=== PATIENT | female | born 1980 | race Caucasian/White ===

== ENCOUNTER 2021-08-21 14:05 | Outpatient (CLI) | payer OTHER, SELFPAY ==
--- NOTE | ~2021-08-21 | MMUS_ITS ---
EXAMINATION: MM diagnostic josette BI w [place], US breast LT limited HISTORY: Palpable left breast lump TECHNIQUE: Additional 3-D tomosynthesis images of the breasts were performed and synthetic 2-D images were generated. CAD analysis was submitted and interpreted. High resolution Limited left breast ultr asound was performed. COMPARISON: None BREAST PARENCHYMAL COMPOSITION: Breast composed of scattered areas of fibroglandular density FINDINGS: MAMMOGRAPHIC FINDINGS: There are no suspicious masses, calcifications or architectural distortion in either breast to sugges t malignancy. ULTRASOUND: Limited left breast ultrasound: Normal heterogeneous echotexture without focal mass. IMPRESSION: 1. No evidence for malignancy in either breast. 2. Routine yearly screening mammogram and regular clinical breast examination are recommended. BI-RADS Category 1: Negative Reviewed, dictated and finalized at location A. IMPRESSION: 1. No evidence for malignancy in either breast. 2. Routine yearly screening mammogram and regular clinical breast examination a re recommended. BI-RADS Category 1: Negative
== END 2021-08-21 14:06 | disposition home or self-care (01) ==
LOC: ANHIMG 14:08
PROVIDERS: Visit Provider Obstetrics & Gynecology
DX: N63.20 Unspecified lump in the left breast, unspecified quadrant (principal)
CPT/HCPCS: 76642; 77062; 77066; G0279

== ENCOUNTER 2023-01-10 14:41 | Outpatient (CLI) | payer OTHER, SELFPAY ==
--- NOTE | ~2023-01-10 | MM_ITS ---
EXAMINATION: MM screening josette BI w [place] HISTORY: Screening mammogram TECHNIQUE: Craniocaudal and mediolateral oblique 3-D tomosynthesis images were obtained and synthetic 2-D images were generated. CAD analysis was submitted and interpreted. COMPARISON: August 21, 2021 diagnostic bilateral mammogram and limited left breast ultrasound BREAST PARENCHYMAL COMPOSITION: There are scattered areas of fibroglandular density. FINDINGS: There is no evidence of suspicious mass, calcification, or architectural distortion to sugg est malignancy in either breast. There has been no suspicious interval change. IMPRESSION: 1. No mammographic evidence of malignancy. 2. Recommend routine screening mammography in one year. BI-RADS Category 1: Negative Reviewed, dictated and finalized at location A.
== END 2023-01-10 14:42 | disposition home or self-care (01) ==
LOC: ANHIMG 14:48
PROVIDERS: PCP Internal Medicine; Visit Provider Obstetrics & Gynecology
DX: Z12.31 Encounter for screening mammogram for malignant neoplasm of breast (principal)
CPT/HCPCS: 77063; 77067

== ENCOUNTER 2024-07-20 14:19 | Outpatient (CLI) | payer OTHER, SELFPAY ==
--- NOTE | ~2024-07-20 | MMUS_ITS ---
EXAMINATION: MM diagnostic josette BI w [place], US breast LT limited HISTORY: 43-year-old woman with a palpable abnormality of the left breast, felt by patient's clinicia n. Evaluation request describes a palpable abnormality at the 2:00 position. Prior palpable abnormality evaluation request (08/21/2021) was at the 5:00 position of the left breast . TECHNIQUE: Craniocaudal and mediolateral oblique 3-D tomosynthesis images were obtained and synthetic 2-D images were generated. CAD analysis was submitted and interpreted. High resolution limited left breast ultrasound was performed. COMPARISON: 01/10/2023 and 08/21/2021 BREAST PARENCHYMAL COMPOSITION:Not Dense. There are scattered areas of fibroglandular density. FINDINGS: MAMMOGRAPHIC FINDINGS: Punctate calcifications are detected bilaterally, stable and benign in appearance. Stable parenchymal pattern without suspicious microcalcifications, architectural distortion, interval development of discrete masses or significant asymmetry. ULTRASOUND: At the 12:00 position, approximately 3 cm from the nipple is a well-circumscribed anechoic avascular structure with increased through transmission measuring 5.6 x 4.3 x 3.0 mm, consistent with a simple cyst for which no further follow-up is needed. Also at the 12:00 position approximately 3 cm from the nipple is a well-circumscribed anechoic avascu lar structure with increased through transmission measuring 6.1 x 8.4 x 3.8 mm, consistent with a sim ple cyst for which no further follow-up is needed. At the 2:00 position, approximately 3 cm from the nipple is a well-circumscribed anechoic avascular s tructure with increased through transmission measuring 5.9 x 5.5 x 1.9 mm, consistent with a simple c yst (unchanged from prior) for which no further follow-up is needed. At the 3:00 position of the left breast approximately 5 cm from the nipple is a well-circumscribed an echoic avascular structure measuring 11.2 x 14.6 x 3.6 mm, consistent with a simple cyst for which no further follow-up is needed. At the 4:00 position, approximately 2 cm from the nipple is a well-circumscribed anechoic avascular s tructure with increased through transmission measuring 5.7 mm in greatest dimension, consistent with a simple cyst, for which no further follow-up is needed. Sonographic evaluation of the remainder of the outer quadrant of the left breast demonstrates benign fibroglandular elements without a cystic or solid lesion of concern. IMPRESSION: No mammographic/tomographic or sonographic evidence to suggest the presence of malignancy. Resumption of yearly mammography is suggested. BI-RADS Category 2: Benign finding(s). Reviewed, dictated and finalized at location A. IMPRESSION: No mammographic/tomographic or sonographic evidence to suggest the presence of malignancy. Resumption of yearly mammography is suggested. BI-RADS Category 2: Benign finding(s).
--- OUTSIDE RECORDS SUMMARY | 2024-07-20 16:52 | XMS_ITS | Clinical Summary ---
Author Organization [facility] Address [address] [place] [id number] Care Team Providers Care Bridal Sales Consultant Name Role Phone Carlota Arellano MD Primary Care Provider [phone] Allergies Active Allergy Reactions Criticality Noted Date Comments Nitrofurantoin Rash Low 05/15/2021 Tape Rash Low 05/15/2021 Social History Tobacco Use Types Packs/Day Years Used Date Smoking Tobacco: Never Smokeless Tobacco: Never Alcohol Use Standard Drinks/Week Comments Never 0 (1 standard drink = 0.6 oz pur e alcohol) Comments No Sex and Gender Information Value Date Recorded Sex Assigned at Not on file Legal Sex Female 5:00 PM CDT Gender Identity Not on file Sexual Orientation Not on file Last Filed Vital Signs Vital Sign Reading Time Taken Comments Blood Pressure 135/93 05/16/2021 4:01 AM [employer] SALES PERSON Pulse 102 05/15/2021 7:44 PM [employer] PERSON Temperature 36.1 C (96.9 F) 05/15/2021 7:51 PM [employer] SAL[employer] PERSON Respiratory Rate 18 05/15/2021 7:44 PM [employer] SAL[employer] PERSON Oxygen Saturation 98% 05/16/2021 4:01 AM [employer] SAL[employer] PERSON Inhaled Oxygen Concentration - - Weight 113.2 kg (249 lb 9 oz) 05/15/2021 7:44 PM [employer] SAL[employer] PERSON Height 162.6 cm (5' 4 ) 05/15/2021 7:44 PM [employer] SAL[employer] PERSON Body Mass Index 42.84 05/15/2021 7:44 PM [employer] SAL[employer] PERSON Plan of Treatment Health Maintenance Due Date Last Done Comments Cervical Cancer Screening Pa p Smear (Age 30 to 64) Every 3 Years 1982 Annual Physical 1985 Hepatitis C 2000 Hepatitis B Vaccines (1 of 3 - 19+ 3-dose series) 2001 Cervical Cancer Screening Pa p with HPV Testing (Age 30 to 64) Every 5 Years 2012 Cervical Cancer Screening wi th HPV 2012 Mammogram Screening 2022 COVID-19 Vaccine (1 - 2023-2 5 season) 2023 Influenza Adult (#1) 2024 03/30/2021, 02/13/2017, 01/08/2016 DTaP, Tdap and Td Vaccines ( 2 - Td or Tdap) 06/05/2027 06/05/2017, 04/28/2015 Pneumococcal Vaccine: Pediatrics (0 to 5 Years) and At-Risk Patients (6 to 64 Years) Aged Out 05/29/2015 No longer eligible b ased on patient's age to complete this topic HPV Vaccines Aged Out No longer eligi ble based on patient's age to complete this topic Meningococcal B Vaccine Aged Out No l onger eligible based on patient's age to complete this topic Meningococcal Vaccine Aged Out No td gael eligible based on patient's age to complete this topic RSV Immunizations Under 20 Months Aged Out No longer eligible b ased on patient's age to complete this topic [place] [address] [place] [address] Care Teams Bridal Sales Consultant Relationship Specialty Start Date End Date Carlota Arellano MD [address] [place] [address] PCP - General INTERNAL MEDICINE 05/15/21
--- OUTSIDE RECORDS SUMMARY | 2024-07-20 16:52 | XMS_ITS ---
Author Organization [facility] Address [address] [place] [address] Care Team Providers Care Barrel Builder Name Role Phone Shannan Gray Primary Care Provider REASON FOR VISIT medication check/follow up Social History Sex Assigned At : Social History Observation Description Sex Assigned At Female Encounters Encounter Location Date Provider Diagnosis [address] [place] [address] 04/08/2023 Shannan Gray Plan Of Treatment No Information Progress Notes * Nasreen CASTELLANOSaDOB:[birth year] (43 yo F)Acc No.[id number]:04/08/2023 UNLOCKED PROGRESS NOTE Patient: Regina BURNS Provider: Martina Gray :1980 A ge:42 Y S ex:Female Date:04/08/2023 Address:[address] [place] [address] [id number] Subjective: * Chief Complaints: * 1 . Medication check/follow up. * Medical History: Objective: * Vitals: Assessment: Plan: * Treatment: * Recommended Wellness and Pre vention Guidelines: * S tatus A lert L ast Done N ext Due A ction Taken N ONCOMPLIANT C ervical cancer screening - 1 06/09/2022 - N ONCOMPLIANT H IV screening - 1 06/09/2022 - * * Electronic signature of Shannan Gray MD, [id number] on 07/20/2024 at 04:52 PM CDT Sign off status: Pending * Provider: Martina Gray Date: 06/09/2022 Generated for Printi ng/Bri/Maniitting on: 0 07/20/2024 04:52 PM CDT
--- OUTSIDE RECORDS SUMMARY | 2024-07-20 16:52 | XMS_ITS | Continuity of Care Document ---
Author Organization [facility] Address [address] [place] [address] Care Team Providers Care Ld Teacher Name Role Phone SABINE SOLIS Primary Care Provider Assessment No assessment recorded. Plan of Treatment Reminders Order Date Submit Date Provider Last Modified By Organization Details Last Modified Time Details Appointments NEW PATIENT 15 2024 09:45A Jaci Evans MD Not available Not available Not available ANY 30 2024 09:30A Jaci Maurer MD Not available Not available Not available Lab None recorded. Referral None recorded. Procedures None recorded. Surgeries open umbilical hernia repair w/mesh (SURG) 2024 04/28/2 025 [id number] [facility] (Surgery Sched), [address] [place], [address], 07/20/2024 11:27:45 Imaging None recorded. Medication Orders None recorded. Patient TargetsNo targets recorded. Patient InstructionsNo instructions recorded. Reason for Referral None Reported. Results Created Date Observation Date Name Description Value Unit Range Abnormal Flag Note LastModifiedBy Organization Detail LastModifiedTime 07/16/1907/15/2024 XR, lumbo sacra l spine , 2 or 3 view No observ ation record ed. [facility] Scheduling [address] [place], [address], 07/19/2024 09:06:55 07/16/19 25 07/15/2024 XR, lumbo sacra l spine , 2 or 3 view No observ ation record ed. [facility] Scheduling [address] [place], [address], 07/19/2024 09:06:56 Result Notes None recorded. Problems No Known Problems Procedures Surgical History Date Name Laterality Status Provider Name and Address Organization Details Recorded Time 02/13/20 23 Cholecystectomy completed Marlys Huang [place] [facility] 04/29/2024 10:00:05 07/17/19 23 Cerumen removal without microscope completed Elizabeth Pacheco [place] [facility] 07/16/2022 10:03:21 Imaging Results None recorded. Procedure Notes None recorded. Medical Equipment None Reported. Allergies Allergen ID Allergen Name Allergen Category Reaction Reaction Severity Criticality Documentation Date Start Date Code Code System Note Provider Name and Address Organization Details Recorded Time 077340 adhesive tape environme nt,medica tion Not available Not available Not available 06/12/2021 19721 UNK Not Available Not Available Not Available 914458 morphine medicatio n anaphylax is severe high 04/29/2024 7052 RxNorm Not Available Not Available Not Available 45854 grass pollen environme nt,medica tion hives severe Not available 01/08/2016 95771 UNK Not Available Not Available Not Available 22943 Macrobid medicatio n rash Not available Not available 10/10/2016 63860 1 RxNorm Not Available Not Available Not Available 00231 raspberry extract food,medi cation respirato ry distress Not available Not available 10/10/2016 14436 69 RxNorm Not Available Not Available Not Available 55142 dandelion extract food respirato ry distress Not available Not available 10/10/2016 21096 0 RxNorm Not Available Not Available Not Available Medications Name Sig Start Date Stop Date Status Note LastModified by Organization Details LastModified Time Prescript ion - Prior Authoriza tion Request active Not Available Not Available Not Available cyclobenz aprine 10 mg tablet TAKE 1 TABLET BY MOUTH EVERY 8 HOURS NEEDED (CUT IN HALF IF TOO SEDATING ) 10/09 completed Not Available Not Available Not Available amoxicill in 500 mg capsule 07/09 completed Not Available Not Available Not Available fluconazo le 100 mg tablet TAKE 1 & 1/2 (ONE & ONE-HALF ) TABLETS BY MOUTH ONCE DAILY FOR 1 DAY 06/12 completed Not Available Not Available Not Available clotrimaz ole 10 mg easton 04/29 completed Not Available Not Available Not Available bupropion HCl SR 150 mg tablet,12 hr sustained -release Take 1 tablet twice a day by oral route as directed for 30 days. 01/29 completed Not Available Not Available Not Available nystatin 100,000 unit/mL oral suspensio n SWISH AND SWALLOW 5 ML FOUR TIMES DAILY FOR UP TO TWO WEEKS. USE FOR TWO DAYS AFTER SYMPTOMS RESOLVE. IF NOT RESOLVED AFTER TWO WEEKS, LET YOUR PROVIDER KNOW. active Not Available Not Available No t Available trazodone 50 mg tablet 07/09 completed Not Available Not Available Not Available polyethyl amelia glycol 3350 17 gram oral powder packet TAKE 1 BY MOUTH ONCE DAILY NEEDED FOR CONSTIPA TION 04/29 completed Not Available Not Available Not Available azithromy gibran 250 mg tablet 04/29 completed Not Available Not Available Not Available ibuprofen 800 mg tablet 07/09 completed Not Available Not Available Not Available fluconazo le 150 mg tablet TAKE 1 TAB BY MOUTH TODAY AND THEN 1 TAB IN 72 HOURS active Not Available Not Available No t Available hydrocodo ne 5 mg-acetam inophen 325 mg tablet 07/09 completed Not Available Not Available Not Available naltrexon e 50 mg tablet Take 1 tablet every day by oral route around the clock for 30 days. 01/29 completed Not Available Not Available Not Available famotidin e 40 mg tablet TAKE 1 TABLET BY MOUTH TWICE DAILY 04/29 completed Not Available Not Available Not Available prednison e 20 mg tablet 11/22 completed Not Available Not Available Not Available Tubersol 5 tub. unit/0.1 mL intraderm al injection solution 10/10 completed TB test results were negative with 0mm. Read on 01/25/16 by LINH Amezcua Not Available Not Available Not Available lidocaine 4 % topical cream Apply 1 applicat ion 4 times a day by topical route as needed for 30 days. 09/20 completed Not Available Not Available Not Available cyanocoba ember (vit B-12) 1,000 mcg tablet one tab po q d 2024 active Not Available Not Available Not Avai lable metronida zole 500 mg tablet TAKE 1 TABLET BY MOUTH TWICE DAILY FOR 7 DAYS 06/12 completed Not Available Not Available Not Available acetamino phen 300 mg-codein e 30 mg tablet TAKE 1 TABLET BY MOUTH EVERY 4 TO 6 HOURS NEEDED FOR PAIN active Not Available Not Available No t Available ciproflox acin 250 mg tablet TAKE 1 TABLET BY MOUTH TWICE DAILY FOR 5 DAYS 06/12 completed Not Available Not Available Not Available ciproflox acin 500 mg tablet TAKE 1 TABLET BY MOUTH TWICE DAILY active Not Available Not Available No t Available tramadol 50 mg tablet TAKE 1 TO 2 TABLETS BY MOUTH THREE TIMES DAILY NEEDED PAIN CONTROL WITH OTC TYLENOL 04/29 completed Not Available Not Available Not Available Kenalog 40 mg/mL suspensio n for injection Take 40 mg as needed by injectio n route as directed for 1 day. 03/30 completed Not Available Not Available Not Available amoxicill in 875 mg tablet TAKE 1 TABLET BY MOUTH EVERY 12 HOURS FOR 10 DAYS 04/29 completed Not Available Not Available Not Available alprazola m 0.25 mg tablet TAKE 1 TABLET BY MOUTH 1 HOUR PRIOR TO MRI,MAY REPEAT ONCE IF NEEDED. (DO NOT DRIVE YOURSELF TO OR FROM THE [facility] ENT) 09/20 completed Not Available Not Available Not Available amitripty line 25 mg tablet 01/22 completed Not Available Not Available Not Available amitripty line 10 mg tablet TAKE 1 TABLET BY MOUTH ONCE DAILY AT BEDTIME 09/20 completed Not Available Not Available Not Available benzonata te 100 mg capsule TAKE 1 CAPSULE BY MOUTH EVERY 8 HOURS NEEDED 04/29 completed Not Available Not Available Not Available rizatript an 10 mg disintegr ating tablet TAKE ONE TABLET BY MOUTH AT ONSET OF MIGRAINE . IF SYMPTOMS PERSIST, A SECOND DOSE MAY BE TAKEN IN 2 HOURS. DO NOT EXCEED 2 DOSES IN A 24 HOUR PERIOD, UNLESS OTHERWIS E INSTRUCT ED BY YOUR PHYSICIA N 04/29 completed Not Available Not Available Not Available cephalexi n 500 mg capsule TAKE 1 CAPSULE BY MOUTH TWICE DAILY FOR 7 DAYS 06/12 completed Not Available Not Available Not Available pantopraz ole 40 mg tablet,de layed release TAKE 1 TABLET BY MOUTH TWICE DAILY 04/29 completed Not Available Not Available Not Available oseltamiv ir 75 mg capsule 07/09 completed Not Available Not Available Not Available nystatin 100,000 unit/gram topical cream APPLY TO THE AFFECTED AREA(S) BY TOPICAL ROUTE 2 TIMES PER DAY 09/29 completed Not Available Not Available Not Available polymyxin B sulfate 10,000 unit-trim ethoprim 1 mg/mL eye drops INSTILL 1 DROP INTO LEFT EYE EVERY 3 HOURS DIRECTED WHILE AWAKE FOR 7 DAYS 04/29 completed Not Available Not Available Not Available Xenical 120 mg capsule Take 1 capsule 3 times a day by oral route after meals for 30 days. 05/08 completed needs a pa Not Available Not Available Not Available iron 325 mg tablet Take 1 tablet every day by oral route. 06/09 completed Not Available Not Available Not Available diclofena c sodium 75 mg tablet,de layed release TAKE 1 TABLET BY MOUTH TWICE DAILY 04/29 completed Not Available Not Available Not Available monteluka st 10 mg tablet Take 1 tablet every day by oral route as directed for 30 days. 04/29 completed Not Available Not Available Not Available lorazepam 1 mg tablet Take 1 tablet as needed by oral route as directed for 1 day. 09/20 completed Not Available Not Available Not Available epinephri ne 0.3 mg/0.3 mL injection , auto-inje ctor Take 1 auto as needed by injectio n route as needed for 1 day. 04/29 completed Not Available Not Available Not Available ibuprofen 600 mg tablet 09/20 completed Not Available Not Available Not Available oxycodone -acetamin ophen 7.5 mg-325 mg tablet TAKE 1 TABLET BY MOUTH EVERY 6 HOURS NEEDED FOR PAIN MODERATE (4-6 ON SCALE), SEVERE (7-10 ON SCALE) 04/29 completed Not Available Not Available Not Available methylpre dnisolone 4 mg tablets in a dose pack TAKE BY MOUTH DIRECTED ON INSIDE OF PACKAGE 10/09 completed Not Available Not Available Not Available albuterol sulfate HFA 90 mcg/actua tion aerosol inhaler INHALE 2 PUFFS BY MOUTH EVERY 4 HOURS NEEDED active Not Available Not Available No t Available cefdinir 300 mg capsule Take 1 capsule every 12 hours by oral route. 01/04 completed Not Available Not Available Not Available fluticaso ne propionat e 50 mcg/actua tion nasal spray,[employer] [place] 2 sprays every day by intranas al route. 2024 active Not Available Not Available Not Avai lable sertralin e 50 mg tablet TAKE 1 TABLET BY MOUTH ONCE DAILY 04/29 completed Not Available Not Available Not Available naproxen 500 mg tablet 04/30 completed Not Available Not Available Not Available metoclopr amide 10 mg tablet TAKE 1 TABLET BY MOUTH TWICE DAILY DIRECTED 09/20 completed Not Available Not Available Not Available amoxicill in 875 mg-potass ium clavulana te 125 mg tablet 12/20 completed Not Available Not Available Not Available amoxicill in 500 mg-potass ium clavulana te 125 mg tablet Take 1 tablet every 12 hours by oral route after meals for 7 days. 06/09 completed Not Available Not Available Not Available Fish Oil Concentra te 1,000 mg capsule Take 1 capsule 3 times a day by oral route with meals. 09/29 completed Not Available Not Available Not Available 01/22 completed Not Available Not Available Not Available Symbicort 160 mcg-4.5 mcg/actua tion HFA aerosol inhaler INHALE 2 PUFFS BY MOUTH TWICE DAILY DIRECTED FOR 30 DAYS 06/27 completed Not Available Not Available Not Available Ashish 60 mg capsule TAKE 2 CAPSULES BY MOUTH THREE TIMES DAILY WITH MEALS 05/08 completed needs a pa Not Available Not Available Not Available diclofena c 1 % topical gel 09/20 completed Not Available Not Available Not Available Nusrat Allergy 180 mg tablet Take 1 tablet every day by oral route as directed for 30 days. 04/30 completed Not Available Not Available Not Available Jencycla 0.35 mg tablet 10/10 completed Not Available Not Available Not Available Contrave 8 mg-90 mg tablet,ex tended release Take 2 tablets twice a day by oral route as directed for 30 days. 07/09 completed Not Available Not Available Not Available Fluzone Quad (P F) 60 mcg(15 mcgx4)/0. 5 mL intramusc ular syringe 07/09 completed Not Available Not Available Not Available Humira(CF ) Pen 40 mg/0.4 mL subcutane ous kit INJECT 1 PEN UNDER THE SKIN EVERY 14 DAYS. 04/29 completed Not Available Not Available Not Available Ensure MAX Protein oral liquid Take 230 mL 3 times a day by oral route as directed for 30 days. 09/20 completed Not Available Not Available Not Available COVID-19 test specimen collectio n TEST DIRECTED 10/09 completed Not Available Not Available Not Available Vitals Date Recorded Body height Body mass index (BMI) Body weight Heart rate Body temperature Oxygen saturation Oxygen saturation in Arterial blood by Pulse oximetry Systolic blood pressure Diastolic blood pressure Provider Name and Address Organization Details Last Updated DateTime 5 162.56 cm 40.2 kg/m2 348653. 33 g 85 /min 97.6 [degF] 98 % 98 % 135 mm[Hg] 77 mm[Hg] Danielle Gill MA [place] [facility] 5 10:57:18 Social History Question Answer Notes LastModified by Organizat ion Details LastModified Time Tobacco Smoking Status Never Smoker Ernie Mohan MA [facility], [place] - [place] 01/08/2016 14:37:58 Do You Have An Advance Directive? No [email or web address] Information n ot available 11/22/2021 What Is Your Level Of Alcohol Consumption? Occasional Information not available 10/10/2016 What Is Your Level Of Caffeine Consumption? Occasional Information not available 07/14/2017 In The 14 Days Before Symptom Onset, Have You Had Close Contact With A Laboratory-confirm ed COVID-19 While That Case Was Ill? No Information n ot available 12/20/2021 In The 14 Days Before Symptom Onset, Have You Had Close Contact With A Person Who Is Under Investigation For COVID-19 While That Person Was Ill? No Information not available 12/20/2021 Have You Been To An Area Known To Be High Risk For COVID-19? No Information not available 12/20/2021 Are You Currently Employed? No Information not available 02/05/2022 What Type Of Diet Are You Following? REGULAR Information n ot available 07/14/2017 Which Illicit Or Recreational Drugs Have You Used? NONE Information not available 07/14/2017 What Is The Highest Grade Or Level Of School You Have Completed Or The Highest Degree You Have Received? [id number] Information not available 02/05/2022 Do You Have A Medical Power Of Machine Straw Hat Presser? No Information not available 07/20/2024 What Was The Date Of Your Most Recent Tobacco Screening? 07/20/2024 Information not available 07/20/2024 Seat Belts Used Routinely Yes Information not available 07/14/2017 General Stress Level Medium Information not available 07/14/2017 Do You Use Sunscreen Routinely? Yes Information not available 07/14/2017 Sex: Female Functional Status Question Answer Note LastModified by Organization D etails LastModified Time What is your exercise level? None Information not available 07/14/2017 Mental Status None recorded. Family History Relationship Description Onset Age of this Age Resolved Age Notes LastModified by Organization Details LastModified Time Father Asthma Not available 10/10/2016 14:12:05 Father Cerebrovascu lar accident Not available 14:12:33 Father Dementia Not availab le 10/10/2016 14:12:50 Father Depressive disorder Not available 10/10 14:13:12 Father Disorder of thyroid gland Not available 10/10 14:13:20 Father Hypertensive disorder Not available 10/10 14:14:14 Father Hypercholest erolemia Not available 10/10 14:14:26 Mother Suspected breast cancer Not available 10/10 14:12:22 Mother Coronary arterioscler osis Not available 10/10 14:12:42 Mother Depressive disorder Not available 10/10 14:13:12 Mother Heart disease Not available 10/10 14:13:28 Mother Hypertensive disorder Not available 10/10 14:14:14 Mother Hypercholest erolemia Not available 10/10 14:14:26 Mother Myocardial infarction Not available 09/26 14:14:39 Mother Osteoporosis Not glenny ilable 10/10/2016 14:14:47 Mother Ankylosing spondylitis Not available 14:16:58 Brother Depressive disorder Not available 10/10 14:13:12 Brother Hypertensive disorder Not available 10/10 14:14:14 Brother Posttraumati c stress disorder Not available 10/10 14:15:15 Medical History Condition Response Anxiety Disorder Y Muscle, Joint, or Bone Problems Y Migraines Y Gynecological History Statement/Question Response Date of LMP 08/31/2021 Obstetrics History GPAL:G 0 P 0 0 0 0 Immunizations Vaccine Type Date Status Note Provider Nam e and Address Organization Details Recorded Time Influenza, split virus, quadrivalent, preservative 6 completed Not Available [facility] 05/15/2019 02:51:04 Hep B, adult 6 completed Not Available [facility] 05/15/2019 02:30:47 Tdap 8 completed Not Available [facility] 05/15/2019 02:35:17 Influenza, split virus, quadrivalent, preservative 1 completed Pranav Haley MA [facility], [place] 03/30/2021 13:43:00 pneumococcal, unspecified formulation 6 completed Not Available [facility] 02/10/2023 08:16:28 tetanus toxoid, unspecified formulation 6 completed Not Available [facility] 02/10/2023 08:16:28 Influenza, split virus, quadrivalent, preservative 7 completed Not Available [facility] 02/10/2023 08:16:27 Past Encounters Encounter ID Performer Location Encounter Start Date Encounter Closed Date Diagnosis/Indication Diagnosis SNOMED-CT Code Diagnosis ICD10 Code Diagnosis Note [id number] Michael Diallo MD [facility] [address] [place] [address] 07/13/2024 14:48:31 07/13/2024 15:18:50 Candidiasis of mouth 09708135 B37.0 infection resolving Chronic rhinitis 3144343 6 J31.0 add over-the-c ounter antihistam mamadou follow back as needed [id number] Marquis Evans MD [facility] [address] [place] [address] 07/20/2024 10:46:50 07/20/2024 14:39:07 Reducible umbilical hernia 533103152 K42.9 patient with symptomati c umbilical hernia, amenable to open repair. Risks include bleeding, recurrence , pain, and mesh infection. Patient is in agreement with the plan of care. Will proceed to the OR as soon as is convenient . Health Concerns Section Related Observation LastModified by Organization Detai ls LastModified Time None Recorded Concern Status LastModified by Organization Details LastModified Time None Recorded Payers Encounter Date Sequence Insurance Name Policy Number Policy Dent Covered Member ID Dent Member ID Guarantor Name 07/20/2024 1 *SELF PAY* Jose Ramon skye Tray Notes Date Note Type Note Provider Name and Address Organization Details Recorded Time 07/20/2024 text/html HerniaReported bypatient.Location:u mbilical port site Quality:tender;bulgi ng Severity:mild; worse during the day; pressure Duration:4 months Onset/Timing:intermi ttent Context:no history of chronic liver disease; no family history of substance abuse Alleviating factors:rest Aggravating factors:bending over Associated Symptoms:no nausea; no vomiting Marquis Evans MD [address], [place], [address], [facility] - [place] 07/20/2024 11:17:15 OBGyn Episode No OBEpisode recorded.
--- OUTSIDE RECORDS SUMMARY | 2024-07-20 16:52 | XMS_ITS | Referral Summary ---
Author Organization [facility] [address] [place] [address] Care Team Providers Care Patient Services Coordinator Name Role Phone Carlota Arellano MD Primary Care Provider Carlota Arellano MD Unavailable [phone] Juwan Alanis MD Unavailable [phone] Deb Ji NP Unavailable [phone] Allergies Active Allergy Reactions Criticality Noted Date Comments Adhesive Rash Medium 05/15/2021 Dandelion [place] Shortness of breath,Rash High 022 And dogwood Grass Pollen Shortness of breath,Rash High 2 Nitrofurantoin Hives Medium 11/11/2019 Raspberry Anaphylaxis,Swelling High 09/03/2021 Epi pen Medications famotidine (PEPCID) 40 mg tablet Take 0.5 tablets (20 mg total) by mouth 2 (two) times a day 08/01/[address] (PROTONIX) 40 mg EC tablet Take 1 tablet (40 mg total) by mouth 2 (two) times a day 08/01/19 22 Active cetirizine (ZyrTEC) 10 mg tablet Take 1 tablet (10 mg total) by mouth nightly Active albuterol HFA (PROVENTIL HFA,VENTOLIN HFA,PROAIR HFA) 90 mcg/actuation inhaler Inhale 2 puffs every 6 (six) hours as needed for wheezing Active montelukast (SINGULAIR) 10 mg tablet Take 1 tablet (10 mg total) by mouth daily 01/05/20 22 Active EPINEPHrine (EPIPEN) 0.15 mg/0.3 mL injection syringeIndications :Anaphylaxis Inject 0.3 mL (0.15 mg total) into the muscle as instructed as needed for anaphylaxis Active rizatriptan DIECAST MACHINE OPERATOR (MAXALT-DIECAST MACHINE OPERATOR) 10 mg disintegrating tabletIndications: Migraine Take 1 tablet (10 mg total) by mouth once as needed for migraine May repeat in 2 hours if unresolved. Do not exceed 30 mg in 24 hours. 9 tablet 5 03/14/20 22 Active Active Problems Problem Noted Date Diagnosed Date Paresthesias 03/15/2022 Migraine without aura and wi thout status migrainosus, not intractable 03/15/2022 Gallbladder disease 09/05/2021 Cubital tunnel syndrome on right 11/11/2019 Assessment & Plan (11/11/2019 2:39 PM CDT): Patient likely sustained a contusion to her ulnar nerve at the cubital tunnel. The can be some secondary scarring in her elbow is restricted in his motion. Would encourage her to work in therapy on regaining range of motion strength and comfort with the arm. She should avoiding direct pressure on the point of the elbow. She may find topical rubs such as Voltaren helpful to diminished inflammation in the nerve tissue. Immunizations Immunization Administration Dates Next Due Hep B Vaccine 01/22/2016 Influenza, Quadrivalent, Split, Intramuscular Influenza, Quadrivalent, Spl it, Preservative Free, Intramuscular 02/13/2017 Pneumococcal, Unspecified 05/29/2015 Tdap 06/05/2017 Tetanus Toxoid, Unspecified 04/28/2015 Social History Tobacco Use Types Packs/Day Years Used Date Smoking Tobacco: Never Smokeless Tobacco: Never Tobacco Cessation:Counseling Given: Not Answered AUDIT-C Answer Date Recorded Q1: How often do you have a drink containing alcohol? Never 03/14/2022 Q2: How many drinks containi ng alcohol do you have on a typical day when you are drinking? Patient does not drink Q3: How often do you have si x or more drinks on one occasion? Never 03/14/2022 Personal Safety Answer Date Recorded Getting School Help Needed Not on file 06/28 Comments No Sex and Gender Information Value Date Recorded Sex Assigned at Not on file Legal Sex Female 7:[address] Gender Identity Female 07/25/2021 9:20 PM CDT Sexual Orientation Not on file Last Filed Vital Signs Vital Sign Reading Time Taken Comments Blood Pressure 121/84 05/17/2022 6:[address] Pulse 77 05/17/2022 6:[address] Temperature 36.7 C (98.1 F) 05/17/2022 2:[address] Respiratory Rate 17 05/17/2022 6:[address] Oxygen Saturation 99% 05/17/2022 6:[address] Inhaled Oxygen Concentration - - Weight 110.7 kg (244 lb) 05/17/2022 2:[address] Height 162.6 cm (5' 4 ) 05/17/2022 2:[address] Body Mass Index 41.88 05/17/2022 2:[address] Plan of Treatment Not on file Insurance [facility] Care Teams Patient Services Coordinator Relationship Specialty Start Date End Date Carlota Arellano MD [address] [place] [address] PCP - General 11/15/19 Carlota Arellano MD [address] [place] [address] Internal Medicine 11/15/19 Juwan Alanis MD [address] [place] [address] Consulting Physician General Surgery 08/24/21 Deb Ji NP [address] [place] [address] Nurse Practitioner Neurology 01/16/22
--- OUTSIDE RECORDS SUMMARY | 2024-07-20 16:53 | XMS_ITS | Clinical Summary ---
Author Organization [facility] Physician Office Building [address] [place] [id number] Care Team Providers Care Furniture Assembler And Installer Name Role Phone Carlota Arellano MD Primary Care Provider [phone] Carlota Arellano MD Unavailable [phone] Juwan Alanis MD Unavailable [phone] Deb Ji NP Unavailable [phone] Allergies Active Allergy Reactions Criticality Noted Date Comments Adhesive Rash Medium 05/15/2021 Dandelion Dellroy Shortness of breath,Rash High 022 And dogwood [...] instructed as needed for anaphylaxis Active rizatriptan MEDICAID BUSINESS ANALYST (MAXALT-MEDICAID BUSINESS ANALYST) 10 mg disintegrating tabletIndications: Migraine Take 1 [...] 05/29/2015 Tdap 06/05/2017 Tetanus Toxoid, Unspecified 04/28/2015 Surgical History Surgery Date Site/Laterality Comments TUBAL LIGATION SECTION SMALL INTESTINE SURGERY as infant Medical History Medical History Date Comments Anxiety Depression GERD (gastroesophageal reflux disease) controlled with meds. Migraines Paresthesia Face and upper e xtremities; Has been happening since age 21. Now more symptoms and having migraines Gallbladder disorder Pain to RUQ , GERD, Low EF. Seeing surgeon in [place] Allergic rhinitis Food intolerance see allergies Claustrophobia Has to have MRI' s with Anesthesia Family History Medical History Relation Name Comments Dementia Father Diabetes Father Heart disease Father Parkinsonism Father Fibromyalgia Mother Relation Name Status Comments Father Alive Mother Alive Social History Tobacco Use Types Packs/Day Years [...] on file Legal Sex Female 7:45 PM VISUAL BASIC .NET DEVELOPER Gender Identity Female 07/25/2021 9:20 PM CDT Sexual Orientation Not on file Obstetrics History Last Filed Vital Signs Vital Sign Reading Time Taken Comments Blood Pressure 121/84 05/17/2022 6:25 PM VISUAL BASIC .NET DEVELOPER Pulse 77 05/17/2022 6:30 PM VISUAL BASIC .NET DEVELOPER Temperature 36.7 C (98.1 F) 05/17/2022 2:02 PM VISUAL BASIC .NET DEVELOPER Respiratory Rate 17 05/17/2022 6:30 PM VISUAL BASIC .NET DEVELOPER Oxygen Saturation 99% 05/17/2022 6:30 PM VISUAL BASIC .NET DEVELOPER Inhaled Oxygen Concentration - - Weight 110.7 kg (244 lb) 05/17/2022 2:02 PM VISUAL BASIC .NET DEVELOPER Height 162.6 cm (5' 4 ) 05/17/2022 2:02 PM VISUAL BASIC .NET DEVELOPER Body Mass Index 41.88 05/17/2022 2:02 PM VISUAL BASIC .NET DEVELOPER Plan of Treatment Health Maintenance Due Date Last Done Comments Breast Cancer Screening-Mammogram 1982 Cervical Cancer Screening 1982 Depression Screening 1982 Hepatitis C Screening 1982 Varicella Vaccines (1 of 2 - 13+ 2-dose series) 10/09/1995 Regular Well Visit/Exam 18-64 2000 Influenza Vaccine (#1) 2023 1, 02/13/2017, 01/08/2016 DTaP/Tdap/Td Vaccine (2 - Td or Tdap) 06/05/2027 06/05/2017 Pneumococcal vaccine <65 Aged Out 05/29/2015 No longer eligible based on patient's age to complete this topic Hepatitis B Screening Completed 01/22/2016 HPV Vaccines Aged Out No longer eligi ble based on patient's age to complete this topic Insurance Care Teams Furniture Assembler And Installer Relationship Specialty Start Date End Date Carlota Arellano MD [address] [place] [id number] PCP - General 11/15/19 Carlota Arellano MD [address] [place] [id number] Internal Medicine 11/15/19 Juwan Alanis MD [address] [place] [address] [phone] Consulting Physician General Surgery 08/24/21 Deb Ji NP [address] [place] [phone] Nurse Practitioner Neurology 01/16/22
--- OUTSIDE RECORDS SUMMARY | 2024-07-20 16:53 | XMS_ITS | Data Portability ---
Author Organization [facility] DENIJen Jose Alberto Lugo Address [address] [place] [address] Care Team Providers Care Account Resolution Analyst Name Role Phone SABINE SOLIS Primary Care Provider [phone] Assessment Encounter Date Assessment Date Assessment LastModified by Organization Details LastModified Time 04/29/2024 04/29/2024 Patient concerned about the possibility of a hernia. There was no obvious hernia on exam. I cannot rule out a small reducible hernia. Will continue to observe. Advised patient to seek immediate medical attention if she develops a hard mass. [email or web address] Not available 04/29/2024 11:16:39 Plan of Treatment Reminders Order Date Submit Date Provider Last Modified By Organization Details Last Modified Time Details Appointments NEW PATIENT 15 2024 09:45A M Marquis Evans MD Not available Not available Not available ANY 30 2024 09:30A M Olga Maurer MD Not available Not available Not available Lab bacterial vaginosis + vaginitis panel, vaginal 2024 025 [facility], [address] [place] [address], [address], [place], [address], 06/30/2024 11:14:34 fungus, culture, unspecifi ed specimen 2024 025 [facility], [address] [place] [address], [address], [place], [address], 06/30/2024 11:14:35 TSH + free T4, serum 2024 025 [facility], [address] [place] [address], [address], [place], [address], 04/30/2024 13:09:00 CMP, serum or plasma 2024 025 [facility], [address], [address], [place], [address], 04/30/2024 13:09:03 HbA1c (hemoglob in A1c), blood 2024 025 [facility], [address], [address], [place], [address], 04/30/2024 13:09:04 lipid panel, serum 2024 025 [facility], [address], [address], [place], [place], [address], 04/30/2024 13:09:01 ESR (erythroc yte sedimenta tion rate), blood 2024 025 [facility], [address], [address], [place], [address], 04/30/2024 13:09:05 HARISH (antinucl ear antibodie s) screen, serum 2024 025 [facility], [address] [facility], [address], [place], [address], 04/30/2024 13:08:58 Referral None recorded. Procedures None recorded. Surgeries open umbilical hernia repair w/mesh (SURG) 2024 025 [id number] (Surgery Sched), [address] [place], [address], 07/20/2024 11:27:45 Imaging XR, sacroilia c joint(s) 2024 025 [facility] (One Call Scheduling), [address] [place], [address], 06/24/2024 14:17:50 XR, lumbosacr al spine, 2 or 3 view 2024 025 [facility] (One Call Scheduling), [address] [place], [address], 07/15/2024 15:06:19 Medication Orders fluticaso ne propionat e 50 mcg/actua tion nasal spray,britni pension 2024 025 [facility], [address] [facility], [place], [address], 07/13/2024 15:17:14 Patient TargetsNo targets recorded. Patient InstructionsNo instructions recorded. Reason for Referral None Reported. Results Created Date Observation Date Name Description Value Unit Range Abnormal Flag Note LastModifiedBy Organization Detail LastModifiedTime 04/29/1904/30/2024 HARISH W/REF MANNY HARISH direct NEGATI VE negati ve Not Available [facility] ([facility]) [address] [place], [address], 04/30/2024 13:08:58 04/29/1904/30/2024 TSH+F REE T4 TSH 2.410 uIU/m L 0.450- 4.500 Not Available [facility] ([facility]) [address] [place], [address], 04/30/2024 13:09:00 04/29/1904/30/2024 TSH+F REE T4 T4,free(dire ct) 1.27 NG/dL 0.82-1 .77 Not Available [facility] ([facility]) [address] [place], [address], 04/30/2024 13:09:00 04/29/19 25 04/30/2024 LIPID PANEL cholesterol, total 235 mg/dL 100-19 9 above high normal Not Available [facility] ([facility]) [address] [place], [address], 04/30/2024 13:09:01 04/29/19 25 04/30/2024 LIPID PANEL triglyceride s 363 mg/dL 0-149 above high normal Not Available [facility] ([facility]) [address] [place], [address], 04/30/2024 13:09:01 04/29/19 25 04/30/2024 LIPID PANEL HDL cholesterol 39 mg/dL >39 below low normal Not Available [facility] ([facility]) [address] [place], [address], 04/30/2024 13:09:01 04/29/19 25 04/30/2024 LIPID PANEL VLDL cholesterol jorge l 65 mg/dL 5-40 above high normal Not Available [facility] ([facility]) [address] [place], [address], 04/30/2024 13:09:01 04/29/19 25 04/30/2024 LIPID PANEL LDL chol calc ([facility]) 131 mg/dL 0-99 above high normal Not Available [facility] ([facility]) [address] [place], [address], 04/30/2024 13:09:01 04/29/19 25 04/30/2024 COMP. METAB OLIC PANEL (14) glucose 115 mg/dL 70-99 above high normal Not Available [facility] ([facility]) [address] [place], [address], 04/30/2024 13:09:02 04/29/19 25 04/30/2024 COMP. METAB OLIC PANEL (14) BUN 9 mg/dL 6-24 Not Available [facility] ([facility]) [address] [place], [address], 04/30/2024 13:09:02 04/29/19 25 04/30/2024 COMP. METAB OLIC PANEL (14) creatinine 0.83 mg/dL 0.57-1 .00 Not Available [facility] ([facility]) [address] [facility] [place], [address], 04/30/2024 13:09:02 04/29/19 25 04/30/2024 COMP. METAB OLIC PANEL (14) eGFR 91 mL/mi n/1.7 3 >59 Not Available [facility] ([facility]) [address] [facility] [place], [address], 04/30/2024 13:09:02 04/29/19 25 04/30/2024 COMP. METAB OLIC PANEL (14) BUN/creatini ne ratio 11 9-23 Not Available [facility] ([facility]) [address] [facility] [place], [address], 04/30/2024 13:09:02 04/29/19 25 04/30/2024 COMP. METAB OLIC PANEL (14) sodium 137 mmol/ L 134-14 4 Not Available [facility] ([facility]) [address] [facility] [place], [address], 04/30/2024 13:09:02 04/29/19 25 04/30/2024 COMP. METAB OLIC PANEL (14) potassium 4.1 mmol/ L 3.5-5. 2 Not Available [facility] ([facility]) [address] [facility] [place], [address], 04/30/2024 13:09:02 04/29/19 25 04/30/2024 COMP. METAB OLIC PANEL (14) chloride 100 mmol/ L 96-106 Not Available [facility] ([facility]) [address] [facility] [place], [address], 04/30/2024 13:09:02 04/29/19 25 04/30/2024 COMP. METAB OLIC PANEL (14) carbon dioxide, total 21 mmol/ L 20-29 Not Available [facility] ([facility]) [address] [facility], [place], [address], 04/30/2024 13:09:02 04/29/19 25 04/30/2024 COMP. METAB OLIC PANEL (14) calcium 9.6 mg/dL 8.7-10 .2 Not Available [facility] ([facility]) [address] [place], [address], 04/30/2024 13:09:02 04/29/19 25 04/30/2024 COMP. METAB OLIC PANEL (14) protein, total 7.9 g/dL 6.0-8. 5 Not Available [facility] ([facility]) [address] [place], [address], 04/30/2024 13:09:02 04/29/19 25 04/30/2024 COMP. METAB OLIC PANEL (14) albumin 4.7 g/dL 3.9-4. 9 Not Available [facility] ([facility]) [address] [place], [address], 04/30/2024 13:09:02 04/29/19 25 04/30/2024 COMP. METAB OLIC PANEL (14) globulin, total 3.2 g/dL 1.5-4. 5 Not Available [facility] ([facility]) [address] [place], [address], 04/30/2024 13:09:02 04/29/19 25 04/30/2024 COMP. METAB OLIC PANEL (14) bilirubin, total 0.5 mg/dL 0.0-1. 2 Not Available [facility] ([facility]) [address] [place], [address], 04/30/2024 13:09:02 04/29/19 25 04/30/2024 COMP. METAB OLIC PANEL (14) alkaline phosphatase 71 IU/L 44-121 Not Available [facility] ([facility]) [address] [place], [address], 04/30/2024 13:09:02 04/29/19 25 04/30/2024 COMP. METAB OLIC PANEL (14) AST (SGOT) 30 IU/L 0-40 Not Available [facility] ([facility]) [address] [facility], [place], [address], 04/30/2024 13:09:02 04/29/19 25 04/30/2024 COMP. METAB OLIC PANEL (14) ALT (SGPT) 33 IU/L 0-32 above high normal Not Available [facility] ([facility]) [address] [place], [address], 04/30/2024 13:09:02 04/29/19 25 04/30/2024 HEMOG LOBIN A1C hemoglobin A1C 5.7 % 4.8-5. 6 above high normal Predi abete s: 5.7 - 6.4 Diabe joel: >6.4 Glyce ramila contr ol for adult s with diabe joel: <7.0 Not Available [facility] ([facility]) [address] [facility], [place], [address], 04/30/2024 13:09:04 04/29/19 25 04/30/2024 SEDIM ENTAT ION RATE- WESTE RGREN sedimentatio n rate-westerg joseph 32 mm/HR 0-32 Not Available [facility] ([facility]) [address] [facility], [place], [address], 04/30/2024 13:09:05 05/05/19 25 05/08/2024 URINE CULTU RELILI NE urine culture, routine FINAL REPORT abnormal Not Available [facility] ([facility]) [address] [place], [address], 05/08/2024 17:07:51 05/05/19 25 05/08/2024 URINE CULTU REJUSTINI NE result 1 KLEBSI NICKY PNEUMO NIAE abnormal Cefaz farideh <=4 ug/mL Cefaz farideh with an RAMILA <=16 predi cts susce ptibi lity to the oral agent s cefac evangelina, cefdi markus, cefpo doxim e, cefpr ozil, cefur oxime , cepha lexin , and lorac arbef when used for thera py of uncom plica cydney urina ry tract infec tions due to E. coli, Klebs iella pneum oniae , and Prote us mirab ilis. 25,00 0-50, 000 colon y formi ng units per mL Not Available [facility] ([facility]) [address] [facility], [place], [address], 05/08/2024 17:07:51 05/05/19 25 05/08/2024 URINE CULTU RE, ROUTI NE antimicrobia l susceptibili ty COMMEN T S = Susce ptibl e; I = Inter media te; R = Resis tant P = Posit arthur; N = Negat arthur MICS are expre ssed in micro grams per mL Antib iotic RSLT# 1 RSLT# 2 RSLT# 3 RSLT# 4 Amoxi cilli n/Cla vulan ic Acid S Ampic illin R Cefep yao S Ceftr iaxon e S Cefur oxime S Cipro floxa gibran S Ertap enem S Genta micin S Imipe nem S Levof loxac in S Merop enem S Nitro furan toin I Piper acill in/Ta zobac galindo S Tetra cycli ne S Tobra mycin S Trime thopr im/Gutierrez lfa S Not Available [facility] ([facility]) [address] [facility], [place], [address], 05/08/2024 17:07:51 05/05/19 25 05/05/2024 urina lysis , dipst ick Leukocytes Small Not Available In-Offi ce Order Internal Use Only DO Not Attach Compendium DO Not Attach Compendium, Do Not Delete/merge, [id number] 05/05/2024 11:18:23 05/05/19 25 05/05/2024 urina lysis , dipst ick Nitrite negati ve Not Available In-Office Order Internal Use Only DO Not Attach Compendium DO Not Attach Compendium, Do Not Delete/merge, 05/05/2024 11:18:23 05/05/1905/05/2024 urina lysis , dipst ick Urobilinogen .2 Not Available In-Of fice Order Internal Use Only DO Not Attach Compendium DO Not Attach Compendium, Do Not Delete/merge, 05/05/2024 11:18:23 05/05/19 25 05/05/2024 urina lysis , dipst ick Protein Negati ve Not Available In-Office Order Internal Use Only DO Not Attach Compendium DO Not Attach Compendium, Do Not Delete/merge, 05/05/2024 11:18:23 05/05/1905/05/2024 urina lysis , dipst ick pH 5.5 Not Available In-Office Order Internal Use Only DO Not Attach Compendium DO Not Attach Compendium, Do Not Delete/merge, 05/05/2024 11:18:23 05/05/19 25 05/05/2024 urina lysis , dipst ick Blood Modera te Not Available In-Office Order Internal Use Only DO Not Attach Compendium DO Not Attach Compendium, Do Not Delete/merge, 05/05/2024 11:18:23 05/05/19 25 05/05/2024 urina lysis , dipst ick Specific [place] 1.020 Not Available In-Off ice Order Internal Use Only DO Not Attach Compendium DO Not Attach Compendium, Do Not Delete/merge, 05/05/2024 11:18:23 05/05/19 25 05/05/2024 urina lysis , dipst ick Ketone Negati ve Not Available In-Office Order Internal Use Only DO Not Attach Compendium DO Not Attach Compendium, Do Not Delete/merge, 05/05/2024 11:18:23 05/05/19 25 05/05/2024 urina lysis , dipst ick Bilirubin Small Not Available In-Offic e Order Internal Use Only DO Not Attach Compendium DO Not Attach Compendium, Do Not Delete/merge, 05/05/2024 11:18:23 05/05/19 25 05/05/2024 urina lysis , dipst ick Glucose Negati ve Not Available In-Office Order Internal Use Only DO Not Attach Compendium DO Not Attach Compendium, Do Not Delete/merge, [id number] 05/05/2024 11:18:23 05/05/19 25 05/05/2024 urina lysis , dipst ick Appearance Cloudy Not Available In-Offi ce Order Internal Use Only DO Not Attach Compendium DO Not Attach Compendium, Do Not Delete/merge, [id number] 05/05/2024 11:18:23 05/05/19 25 05/05/2024 urina lysis , dipst ick Color Dark Yellow Not Available In-Office Order Internal Use Only DO Not Attach Compendium DO Not Attach Compendium, Do Not Delete/merge, [id number] 05/05/2024 11:18:23 05/12/19 25 05/13/2024 MICRO SCOPI C EXAMI NATIO N WBC 0-5 /hpf 0-5 Not Available [facility] ([facility]) [address] [facility], [place], [address], 05/13/2024 13:15:18 05/12/19 25 05/13/2024 MICRO SCOPI C EXAMI NATIO N RBC None seen /hpf 0-2 Not Available [facility] ([facility]) [address] [facility], [place], [address], 05/13/2024 13:15:18 05/12/19 25 05/13/2024 MICRO SCOPI C EXAMI NATIO N epithelial cells (non renal) 0-10 /hpf 0-10 Not Available [facility] ([facility]) [address] [facility], [place], [address], 05/13/2024 13:15:18 05/12/19 25 05/13/2024 MICRO SCOPI C EXAMI NATIO N casts None seen /lpf nonese en Not Available [facility] ([facility]) [address] [facility], [place], [address], 05/13/2024 13:15:18 05/12/19 25 05/13/2024 MICRO SCOPI C EXAMI NATIO N bacteria Few nonese en/few Not Available [facility] ([facility]) [address] [facility], [place], [address], 05/13/2024 13:15:18 05/12/19 25 05/13/2024 URINA LYSIS , COMPL ETE specific gravity 1.011 1.005- 1.030 Not Available [facility] ([facility]) [address] [facility], [place], [address], 05/13/2024 13:15:18 05/12/19 25 05/13/2024 URINA LYSIS , COMPL ETE pH 5.5 5.0-7. 5 Not Available [facility] ([facility]) [address] [facility], [place], [address], 05/13/2024 13:15:18 05/12/19 25 05/13/2024 URINA LYSIS , COMPL ETE urine-color YELLOW yellow Not Available [facility] ([facility]) [address] [facility], [place], [address], 05/13/2024 13:15:18 05/12/19 25 05/13/2024 URINA LYSIS , COMPL ETE appearance CLEAR clear Not Available [facility] ([facility]) [address] [facility], [place], [address], 05/13/2024 13:15:18 05/12/19 25 05/13/2024 URINA LYSIS , COMPL ETE WBC esterase NEGATI VE negati ve Not Available [facility] ([facility]) [address] [facility], [place], [address], 05/13/2024 13:15:18 05/12/19 25 05/13/2024 URINA LYSIS , COMPL ETE protein NEGATI VE negati ve/tra ce Not Available [facility] ([facility]) [address] [facility], [place], [address], 05/13/2024 13:15:18 05/12/19 25 05/13/2024 URINA LYSIS , COMPL ETE glucose NEGATI VE negati ve Not Available [facility] ([facility]) [address] [place], [address], 05/13/2024 13:15:18 05/12/19 25 05/13/2024 URINA LYSIS , COMPL ETE ketones 1+ negati ve abnormal Not Available [facility] ([facility]) [address] [place], [address], 05/13/2024 13:15:18 05/12/19 25 05/13/2024 URINA LYSIS , COMPL ETE occult blood NEGATI VE negati ve Not Available [facility] ([facility]) [address] [place], [address], 05/13/2024 13:15:18 05/12/19 25 05/13/2024 URINA LYSIS , COMPL ETE bilirubin NEGATI VE negati ve Not Available [facility] ([facility]) [address] [place], [address], 05/13/2024 13:15:18 05/12/19 25 05/13/2024 URINA LYSIS , COMPL ETE urobilinogen ,semi-qn 0.2 mg/dL 0.2-1. 0 Not Available [facility] ([facility]) [address] [place], [address], 05/13/2024 13:15:18 05/12/19 25 05/13/2024 URINA LYSIS , COMPL ETE nitrite, urine NEGATI VE negati ve Not Available [facility] ([facility]) [address] [place], [address], 05/13/2024 13:15:18 05/12/19 25 05/13/2024 URINA LYSIS , COMPL ETE microscopic examination COMMEN T Micro scopi c follo ws if indic ated. Not Available [facility] ([facility]) [address] [facility], [place], [address], 05/13/2024 13:15:18 05/12/19 25 05/13/2024 URINA LYSIS , COMPL ETE microscopic examination SEE BELOW: Micro ivethi c was indic ated and was perfo rmed. Not Available [facility] ([facility]) [address] [facility], [place], [address], 05/13/2024 13:15:18 06/01/19 25 06/04/2024 NUSWA B BV [place]+C AND6+ CT/GC /T... hsv 1 [place] NEGATI VE negati ve Not Available [facility] ([facility]) [address] [facility], [place], [address], 06/30/2024 11:14:34 06/01/19 25 06/04/2024 NUSWA B BV [place]+C AND6+ CT/GC /T... hsv 2 [place] NEGATI VE negati ve Not Available [facility] ([facility]) [address] [facility], [place], [address], 06/30/2024 11:14:34 06/01/19 25 06/09/2024 NUSWA B BV [place]+C AND6+ CT/GC /T... atopobium vaginae LOW - 0 score Not Available [facility] ([facility]) [address] [place], [address], 06/30/2024 11:14:34 06/01/19 25 06/09/2024 NUSWA B BV [place]+C AND6+ CT/GC /T... bvab 2 LOW - 0 score Not Available [facility] ([facility]) [address] [facility], [place], [address], 06/30/2024 11:14:34 06/01/19 25 06/09/2024 NUSWA B BV [place]+C AND6+ CT/GC /T... megasphaera 1 LOW - 0 score Calcu late total score by bel g the 3 indiv idual bacte rial vagin osis (BV) marke r score s toget her. Total score is inter prete d as follo ws: Total score 0-1: Indic ates the absen ce of BV. Total score 2: Indet ermin ate for BV. Addit ional clini jorge l data shoul d be evalu ated to estab wilmer a diagn osis. Total score 3-6: Indic ates the prese nce of BV. Not Available [facility] ([facility]) [address] [place], [address], 06/30/2024 11:14:34 06/01/19 25 06/09/2024 NUSWA B BV [place]+C AND6+ CT/GC /T... marialuisa albicans, ACMDEN NEGATI VE negati ve Not Available [facility] ([facility]) [address] [place], [address], 06/30/2024 11:14:34 06/01/19 25 06/09/2024 NUSWA B BV [place]+C AND6+ CT/GC /T... marialuisa glabrata, [place] NEGATI VE negati ve Not Available [facility] ([facility]) [address] [place], [address], 06/30/2024 11:14:34 06/01/19 25 06/10/2024 NUSWA B BV [place]+C AND6+ CT/GC /T... C parapsilosis /tropicalis NEGATI VE negati ve This assay does not diffe renti ate C. tropi calis and C. parap neva is. Not Available [facility] ([facility]) [address] [place], [address], 06/30/2024 11:14:34 06/01/19 25 06/10/2024 NUSWA B BV [place]+C AND6+ CT/GC /T... marialuisa lusitaniae, [place] NEGATI VE negati ve Not Available [facility] ([facility]) [address] [facility], [place], [address], 06/30/2024 11:14:34 06/01/19 25 06/10/2024 NUSWA B BV [place]+C AND6+ CT/GC /T... marialuisa krusei, [place] NEGATI VE negati ve Not Available [facility] ([facility]) [address] [facility], [place], [address], 06/30/2024 11:14:34 06/01/19 25 06/10/2024 NUSWA B BV [place]+C AND6+ CT/GC /T... trich vag by [place] NEGATI VE negati ve Not Available [facility] ([facility]) [address] [facility], [place], [address], 06/30/2024 11:14:34 06/01/19 25 06/10/2024 NUSWA B BV [place]+C AND6+ CT/GC /T... chlamydia trachomatis, [place] NEGATI VE negati ve Not Available [facility] ([facility]) [address] [facility], [place], [address], 06/30/2024 11:14:34 06/01/19 25 06/10/2024 NUSWA B BV [place]+C AND6+ CT/GC /T... neisseria gonorrhoeae, CADMEN NEGATI VE negati ve Not Available [facility] ([facility]) [address] [facility], [place], [address], 06/30/2024 11:14:34 06/01/19 25 06/30/2024 FUNGU S (MYCO LOGY) CULTU RE fungus (mycology) culture FINAL REPORT Not Available [facility] ([facility]) [address] [facility], [place], [address], 06/30/2024 11:14:35 06/01/19 25 06/30/2024 FUNGU S (MYCO LOGY) CULTU RE result 1 COMMEN T No yeast or mold isola cydney after 4 weeks . Not Available [facility] ([facility]) [address] [place], [address], 06/30/2024 11:14:35 06/11/19 25 06/12/2024 COMP. METAB OLIC PANEL (14) glucose 104 mg/dL 70-99 above high normal Not Available [facility] ([facility]) [address] [place], [address], 06/12/2024 08:26:10 06/11/19 25 06/12/2024 COMP. METAB OLIC PANEL (14) BUN 10 mg/dL 6-24 Not Available [facility] ([facility]) [address] [place], [address], 06/12/2024 08:26:10 06/11/19 25 06/12/2024 COMP. METAB OLIC PANEL (14) creatinine 0.89 mg/dL 0.57-1 .00 Not Available [facility] ([facility]) [address] [place], [address], 06/12/2024 08:26:10 06/11/19 25 06/12/2024 COMP. METAB OLIC PANEL (14) eGFR 83 mL/mi n/1.7 3 >59 Not Available [facility] ([facility]) [address] [place], [address], 06/12/2024 08:26:10 06/11/19 25 06/12/2024 COMP. METAB OLIC PANEL (14) BUN/creatini ne ratio 11 9-23 Not Available [facility] ([facility]) [address] [place], [address], 06/12/2024 08:26:10 06/11/19 25 06/12/2024 COMP. METAB OLIC PANEL (14) sodium 140 mmol/ L 134-14 4 Not Available [facility] ([facility]) [address] [place], [address], 06/12/2024 08:26:10 06/11/19 25 06/12/2024 COMP. METAB OLIC PANEL (14) potassium 4.2 mmol/ L 3.5-5. 2 Not Available [facility] ([facility]) [address] [place], [address], 06/12/2024 08:26:10 06/11/19 25 06/12/2024 COMP. METAB OLIC PANEL (14) chloride 102 mmol/ L 96-106 Not Available [facility] ([facility]) [address] [place], [address], 06/12/2024 08:26:10 06/11/19 25 06/12/2024 COMP. METAB OLIC PANEL (14) carbon dioxide, total 23 mmol/ L 20-29 Not Available [facility] ([facility]) [address] [facility] [place], [address], 06/12/2024 08:26:10 06/11/19 25 06/12/2024 COMP. METAB OLIC PANEL (14) calcium 9.4 mg/dL 8.7-10 .2 Not Available [facility] ([facility]) [address] [facility] [place], [address], 06/12/2024 08:26:10 06/11/19 25 06/12/2024 COMP. METAB OLIC PANEL (14) protein, total 7.3 g/dL 6.0-8. 5 Not Available [facility] ([facility] [address] [facility] [place], [address], 06/12/2024 08:26:10 06/11/19 25 06/12/2024 COMP. METAB OLIC PANEL (14) albumin 4.5 g/dL 3.9-4. 9 Not Available [facility] ([facility]) [address] [facility] [place], [address], 06/12/2024 08:26:10 06/11/19 25 06/12/2024 COMP. METAB OLIC PANEL (14) globulin, total 2.8 g/dL 1.5-4. 5 Not Available [facility] ([facility]) [address] [place], [address], 06/12/2024 08:26:10 06/11/19 25 06/12/2024 COMP. METAB OLIC PANEL (14) bilirubin, total 0.6 mg/dL 0.0-1. 2 Not Available [facility] ([facility]) [address] [place], [address], 06/12/2024 08:26:10 06/11/19 25 06/12/2024 COMP. METAB OLIC PANEL (14) alkaline phosphatase 64 IU/L 44-121 Not Available [facility] [address] [place], [address], 06/12/2024 08:26:10 06/11/19 25 06/12/2024 COMP. METAB OLIC PANEL (14) AST (SGOT) 22 IU/L 0-40 Not Available [facility] ([facility]) [address] [facility] [place], [address], 06/12/2024 08:26:10 06/11/19 25 06/12/2024 COMP. METAB OLIC PANEL (14) ALT (SGPT) 28 IU/L 0-32 Not Available [facility] ([facility]) [address] [facility] [place], [address], 06/12/2024 08:26:10 06/11/19 25 06/12/2024 VITAM IN B12 AND FOLAT E vitamin B12 220 pg/mL 232-12 45 below low normal Not Available [facility] ([facility]) [address] [facility] [place], [address], 06/12/2024 08:26:11 06/11/1906/12/2024 VITAM IN B12 AND FOLAT E folate (folic acid), serum 5.5 NG/mL >3.0 A serum folat e linh ntrat ion of less than 3.1 ng/mL is consi dered to repre sent clini jorge l defic iency . Not Available [facility] ([facility]) [address] [facility], [place], [address], 06/12/2024 08:26:11 06/11/1906/12/2024 HEMOG LOBIN A1C hemoglobin A1C 5.9 % 4.8-5. 6 above high normal Predi abete s: 5.7 - 6.4 Diabe joel: >6.4 Glyce ramila contr ol for adult s with diabe joel: <7.0 Not Available [facility] ([facility]) [address] [facility], [place], [address], 06/12/2024 08:26:13 06/11/1906/12/2024 CBC, PLATE LET, NO DIFFE RENTI AL WBC 9.4 x10e3 /uL 3.4-10 .8 Not Available [facility] ([facility]) [address] [facility], [place], [address], 06/12/2024 08:26:13 06/11/1906/12/2024 CBC, PLATE LET, NO DIFFE RENTI AL RBC 4.78 x10e6 /uL 3.77-5 .28 Not Available [facility] ([facility]) [address] [facility], [place], [address], 06/12/2024 08:26:13 06/11/1906/12/2024 CBC, PLATE LET, NO DIFFE RENTI AL hemoglobin 13.3 g/dL 11.1-1 5.9 Not Available [facility] ([facility]) [address] [facility], [place], [address], 06/12/2024 08:26:13 06/11/1906/12/2024 CBC, PLATE LET, NO DIFFE RENTI AL hematocrit 42.3 % 34.0-4 6.6 Not Available [facility] ([facility]) [address] [place], [address], 06/12/2024 08:26:13 06/11/1906/12/2024 CBC, PLATE LET, NO DIFFE RENTI AL MCV 89 fL 79-97 Not Available [facility] ([facility]) [address] [place], [address], 06/12/2024 08:26:13 06/11/1906/12/2024 CBC, PLATE LET, NO DIFFE RENTI AL MCH 27.8 pg 26.6-3 3.0 Not Available [facility] ([facility]) [address] [place], [address], 06/12/2024 08:26:13 06/11/1906/12/2024 CBC, PLATE LET, NO DIFFE RENTI AL MCHC 31.4 g/dL 31.5-3 5.7 below low normal Not Available [facility] ([facility]) [address] [place], [address], 06/12/2024 08:26:13 06/11/19 25 06/12/2024 CBC, PLATE LET, NO DIFFE RENTI AL RDW 13.4 % 11.7-1 5.4 Not Available [facility] ([facility]) [address] [place], [address], 06/12/2024 08:26:13 06/11/1906/12/2024 CBC, PLATE LET, NO DIFFE RENTI AL platelets 329 x10e3 /uL 150-45 0 Not Available [facility] ([facility]) [address] [place], [address], 06/12/2024 08:26:13 06/15/19 25 06/28/2024 HOMOC YSTEI NE homocysteine 15.7 umol/ L above high normal Homoc ystei ne level s in patie nts >60 years incre ase 1-2 umol/ L. Refer ence Range : 5.0 - 15.0 Not Available [facility] [address] [place], [address], 06/28/2024 13:10:25 06/15/19 25 06/20/2024 METHY LMALO MARLO ACID, SERUM methylmaloni c acid, serum 250 nmol/ L 0-378 Not Available [facility] [address] [facility], [place], [address], 06/28/2024 13:10:26 06/15/19 25 06/18/2024 INTRI NSIC FACTO R ABS, SERUM intrinsic factor abs, serum 1.0 AU/mL 0.0-1. 1 Not Available [facility] [address] [place], [address], 06/28/2024 13:10:27 06/30/19 25 06/30/2024 FOLAT E, RBC folate, hemolysate 304.0 NG/mL notest ab. Not Available [facility] ([facility]) [address] [place], [address], 06/30/2024 17:10:29 06/30/19 25 06/30/2024 FOLAT E, RBC hematocrit 40.0 % 34.0-4 6.6 Not Available [facility] ([facility]) [address] [place], [address], 06/30/2024 17:10:29 06/30/19 25 06/30/2024 FOLAT E, RBC folate, RBC 760 NG/mL >498 Not Available [facility] ([facility]) [address] [place], [address], 06/30/2024 17:10:29 06/21/19 23 06/21/2022 XR, lumba r spine No observ ation record ed. [address] [facility] [address] [place], [address], 06/28/2022 09:59:50 06/21/19 23 06/21/2022 XR, hip + pelvi s, bilat eral, 2 view No observ ation record ed. [address] [facility] [address] [place], [address], 06/28/2022 10:00:28 06/27/19 23 06/26/2022 audio gram No observ ation record ed. [email or web address] [facility] [address] [facility] [place] [place] , [place], [address], 07/10/2022 15:51:25 01/11/20 23 01/10/2023 MAMMO , scree ayaan, bilat eral No observ ation record ed. [place] [address], [place], [address], 01/22/2023 10:36:25 01/17/20 23 01/16/2023 XR, chest No observ ation record ed. [facility] [address] [place], [address], 01/17/2023 12:12:03 01/28/20 23 01/27/2023 XR, chest No observ ation record ed. [address] [place], [address], 01/30/2023 10:12:39 01/28/20 23 01/27/2023 CT, abdom en + pelvi s, w/o contr ast No observ ation record ed. [address] [place], [address], 01/30/2023 10:12:54 01/29/20 23 01/28/2023 US, abdom en No observ ation record ed. [address] [facility] [address] [place], [address], 01/30/2023 10:13:13 01/29/20 23 01/28/2023 CT, abdom en, w/o contr ast No observ ation record ed. [email or web address] [facility] [address] [place], [address], 01/30/2023 10:14:03 01/31/20 23 01/30/2023 CT, abdom en + pelvi s, w/o contr ast No observ ation record ed. [facility] [address] [place], [address], 02/03/2023 14:11:42 05/10/19 25 05/10/2024 CT, abdom en + pelvi s, w/o contr ast No observ ation record ed. [facility] [address] [place], [address], 06/13/2024 15:22:09 07/16/19 25 07/15/2024 XR, lumbo sacra l spine , 2 or 3 view No observ ation record ed. [facility] [address] [place], [address], 07/19/2024 09:06:55 07/16/19 25 07/15/2024 XR, lumbo sacra l spine , 2 or 3 view No observ ation record ed. [facility] [address] [place], [address], 07/19/2024 09:06:56 Result Notes None recorded. Problems No Known Problems Procedures Surgical History Date Name Laterality Status Provider Name and Address Organization Details Recorded Time 02/13/20 23 Cholecystectomy completed Marlys Huang MA [facility] 04/29/2024 10:00:05 07/17/19 23 Cerumen removal without microscope completed Elizabeth Pacheco [facility] 07/16/2022 10:03:21 Imaging Results Imaging Date Name Status LastModified by [facility] Details LastModified Time 06/21/2022 XR, lumbar spine completed [email or web address] [facility] [address] [place], [address], 06/28/2022 09:59:50 06/21/2022 XR, hip + pelvis, bilateral, 2 view completed [email or web address] [facility] [address] [place], [address], 06/28/2022 10:00:28 06/26/2022 audiogram completed [email or web address] [facility] [address] [facility] [place] [place] , [place], [address], 07/10/2022 15:51:25 01/10/2023 MAMMO, screening, bilateral completed [facility] [address], [place], [address], 01/22/2023 10:36:25 01/16/2023 [email or web address] [address] [place], [address], 01/17/2023 12:12:03 01/27/2023 XR, chest completed [address] [place], [address], 01/30/2023 10:12:39 01/27/2023 CT, abdomen + pelvis, w/o contrast completed [address] [place], [address], 01/30/2023 10:12:54 01/28/2023 US, abdomen completed [email or web address] [facility] [address] [place], [address], 01/30/2023 10:13:13 01/28/2023 CT, abdomen, w/o contrast completed [address] [place], [address], 01/30/2023 10:14:03 01/30/2023 CT, abdomen + pelvis, w/o contrast completed [facility] [address] [place], [address], 02/03/2023 14:11:42 05/10/2024 CT, abdomen + pelvis, w/o contrast completed [facility] [address] [place], [address], 06/13/2024 15:22:09 07/15/2024 XR, lumbosacral spine, 2 or 3 view active [facility] [address] [place], [address], 07/19/2024 09:06:55 07/15/2024 XR, lumbosacral spine, 2 or 3 view active [facility] [address] [place], [address], 07/19/2024 09:06:56 Procedure Notes None recorded. Medical Equipment None Reported. Allergies Allergen ID Allergen Name Allergen Category Reaction Reaction Severity Criticality Documentation Date Start Date Code Code System Note Provider Name and Address Organization Details Recorded Time 119030 adhesive tape environme nt,medica tion Not available Not available Not available 06/12/2021 35239 UNK Not Available Not Available Not Available 201736 morphine medicatio n anaphylax is severe high 04/29/2024 7052 RxNorm Not Available Not Available Not Available 82685 grass pollen environme nt,medica tion hives severe Not available 01/08/2016 69276 UNK Not Available Not Available Not Available 16674 Macrobid medicatio n rash Not available Not available 10/10/2016 90487 1 RxNorm Not Available Not Available Not Available 29171 raspberry extract food,medi cation respirato ry distress Not available Not available 10/10/2016 51685 69 RxNorm Not Available Not Available Not Available 28527 dandelion extract food respirato ry distress Not available Not available 10/10/2016 73633 0 RxNorm Not Available Not Available Not [...] NOT DRIVE YOURSELF TO OR FROM THE [facility]) 09/20 completed Not Available Not Available [...] e 50 mcg/actua tion nasal spray,britni pension Switchback 2 sprays every day by intranas al [...] Available Not Available Not Available Fluzone Quad 2016-(P F) 60 mcg(15 mcgx4)/0. 5 mL intramusc [...] Not Available Vitals Date Recorded Body height Pain severity - 0-10 verbal numeric rating [Score] - Reported Provider Name and Address Organization Details Last Updated DateTime 07/16/2022 162.56 cm 0 Elizabeth DowneyJONAH [facility] 07/16/2022 10:03:43 Date Recorded Body height Body mass index (BMI) Body weight Body temperature Oxygen saturation Oxygen saturation in Arterial blood by Pulse oximetry Heart rate Systolic blood pressure Diastolic blood pressure Provider Name and Address Organization Details Last Updated DateTime 5 162.56 cm 44.8 kg/m2 427305. 61 g 97.7 [degF] 98 % 98 % 78 /min 110 mm[Hg] 74 mm[Hg] Marlys Huang MA [facility] 5 10:01:35 Date Recorded Body height Body mass index (BMI) Body weight Oxygen saturation Oxygen saturation in Arterial blood by Pulse oximetry Heart rate Body temperature Systolic blood pressure Diastolic blood pressure Provider Name and Address Organization Details Last Updated DateTime 5 162.56 cm 44.8 kg/m2 149232. 61 g 99 % 99 % 76 /min 97 [degF] 118 mm[Hg] 70 mm[Hg] Marlys Huang MA [facility] 5 16:49:04 Date Recorded Body height Body mass index (BMI) Body weight Heart rate Respiratory rate Body temperature Systolic blood pressure Diastolic blood pressure Provider Name and Address Organization Details Last Updated DateTime 5 162.56 cm 40.7 kg/m2 080350. 39 g 77 /min 18 /min 98 [degF] 135 mm[Hg] 82 mm[Hg] Darcy hassan MA [facility] 5 14:57:21 Date Recorded Body height Body mass index (BMI) Body weight Heart rate Body temperature Oxygen saturation Oxygen saturation in Arterial blood by Pulse oximetry Systolic blood pressure Diastolic blood pressure Provider Name and Address Organization Details Last Updated DateTime 5 162.56 cm 40.2 kg/m2 344451. 33 g 85 /min 97.6 [degF] 98 % 98 % 135 mm[Hg] 77 mm[Hg] Danielle Gill MA [facility] 5 10:57:18 Social History Question Answer Notes LastModified by Organizat ion Details LastModified Time Tobacco Smoking Status Never Smoker Ernie Mohan MA [facility], [place] - REPLACED BY [facility] 01/08/2016 14:37:58 Do You Have An Advance [...] Or The Highest Degree You Have Received? [id number] Information not available 02/05/2022 Do You Have A Medical Power Of Engine Mechanic? No Information not available 07/20/2024 What Was [...] virus, quadrivalent, preservative 6 completed Not Available [facility] 05/15/2019 02:51:04 Hep B, adult 6 completed Not Available [facility] 05/15/2019 02:30:47 Tdap 8 completed Not Available [facility] 05/15/2019 02:35:17 Influenza, split virus, quadrivalent, preservative 1 completed Pranav Haley MA [facility], [place] - REPLACED BY [facility] 03/30/2021 13:43:00 pneumococcal, unspecified formulation 6 completed Not Available [facility] 02/10/2023 08:16:28 tetanus toxoid, unspecified formulation 6 completed Not Available [facility] 02/10/2023 08:16:28 Influenza, split virus, quadrivalent, preservative 7 completed Not Available [facility] 02/10/2023 08:16:27 Past Encounters Encounter ID Performer Location Encounter Start Date Encounter Closed Date Diagnosis/Indication Diagnosis SNOMED-CT Code Diagnosis ICD10 Code Diagnosis Note [id number] Monica Nelson MA [facility] [address] [place] [address] 01/08/2016 14:07:21 01/08/2016 15:07:13 History and physical examination, [facility] 62124493 Z02.0 [id number] Saul Landis PA-C [facility] [address] [place] [address] 01/22/2016 12:40:47 01/22/2016 15:18:19 Active or passive immunization 635636187 Z23 [id number] MD [facility] (Adult Med) [address] [place] [phone] 10/10/2016 13:50:42 10/11/2016 10:56:43 Adult health examination 645249534 Z00.00 Morbid obesity 645412648 E66.01 Diet, exercise and lose weight, she agreed. Willing to try contrave. [id number] MD [facility] (Adult Med) [address] [place] [phone] 01/13/2017 10:22:50 01/13/2017 11:56:25 Intrauterine 44461242 Z34.90 Under the care of her obstetrici an. Chronic he adache disorder 514453980 G44.89 Dyslipidemia 853076551 E 78.5 Low saturated fat diet, will try fish oil, results of her GTT, cmp, lipid profile s printed , explained in ddetails and copies provided to patient. [id number] MANUEL Hernandez (Adult Med) [address] [place] [phone] 0 06/05/2017 11:45:51 06/05/2017 12:47:56 Administration of diphtheria, pertussis, and tetanus vaccine 640116158 Z23 [id number] MD [facility] (Adult Med) [address] [place] [phone] 0 07/09/2017 10:03:34 07/09/2017 12:08:46 Family history of diabetes mellitus type 2 218318727 Z83.3 GTT and HgA1c are not type DM. will F/U in 6 months, she is breast feding for her 3-month old baby. Tinea corporis 08151461 B35.4 Her baby has fungus rash. [id number] [facility] [address] [place] [address] 07/14/2017 10:57:13 08/18/2017 08:44:24 [id number] MD [facility] (Adult Med) [address] [place] [phone] 01/22/2018 11:54:15 01/22/2018 12:56:46 Tinea corporis 36922671 B35.4 Her baby has fungus rash. Family his tory of diabetes mellitus type 2 530454805 Z83.3 GTT and HgA1c are not type DM. will F/U in 6 months, she is breast feding for her 3-month old baby. Obesity 572770854 E66.9 Diet, exercise and lose weight, willing to try naltrexone and wellbutrin . [id number] Sabine Solis MD [facility] (Adult Med) [address] [place] [phone] 0 09/29/2018 10:41:25 09/29/2018 12:10:23 Impaired glucose tolerance 5349689 R73.02 Discussed with patient, agreed with the tests. Morbid obesity 380151981 E66.01 Diet, exercise and lose weight, she agreed. Willing to try contrave. History of asthma 155215 [address] wanting renew marin inhaler for her asthma. [id number] Sabine Solis MD [facility] (Adult Med) [address] [place] [phone] 12/30/2018 12:23:48 12/30/2018 12:57:17 Acute bronchitis with bronchospasm 83172561 J20.9 [id number] Sabine Solis MD [facility] (Adult Med) [address] [place] [phone] 06/09/2019 16:06:48 06/09/2019 16:54:02 Asthma 256874995 J45.909 Overweight 917044326 E66 .3 diet, exercise and keep weight down. Morbid obesity 455455888 E66.01 Diet, exercise and lose weight, she agreed. Willing to try contrave. [id number] Sabine Solis MD [facility] (Adult Med) [address] [place] [phone] 0 09/27/2019 08:01:01 09/28/2019 02:19:33 Pain of right elbow joint 3550271521 3588658 M25.521 HAD ACCIDENT ABOUT ONE AND HALF MONTH AGO, STILL HAS PAIN. WILL TAKE X RAY. Xray of right elbow of 08-26-2019 was negative, she is informed today 09-27-2019 . She agreed orthopedic referral. Overweight 329035777 E66 .3 diet, exercise and keep weight down. Morbid obesity 741973196 E66.01 Diet, exercise and lose weight, she agreed. Willing to try contrave. Will put on substitute s which are cheaper and allowed from his insurance. [id number] MD [facility] Spann (Adult Med) [address] [place] [address] 0 02/02/2020 08:27:15 02/04/2020 14:42:08 Asthma 111473900 J45.909 Stopped montelukas t due to side effect, namely migraine head ache. [id number] [facility] [address] [place] [address] 0 01/29/2021 14:45:32 01/31/2021 11:26:33 Contact dermatitis caused by plants 598546935 L25.5 May try aveeno cream or powder bathing, avoid too warmer water. [id number] [facility] [address] [place] [address] 0 03/30/2021 11:20:11 03/30/2021 12:27:21 Asthma 185934072 J45.909 Stopped montelukas t due to side effect, namely migraine head ache. Administra tion of influenza vaccine 68170683 Z23 She tolerated shot well. Morbid obesity 999841205 E66.01 Diet, exercise and lose weight, she agreed. Willing to try contrave. Will put on substitute s which are cheaper and allowed from his insurance. History of rheumatoid arthritis 657580403 Z87.39 Stiff multiple joints, wrists, elbows, knees and hips , since she was in teens. [id number] MD [facility] Spann (Adult Med) [address] [place] [phone] 0 04/30/2021 10:30:21 05/01/2021 10:33:11 Sore throat 990315092 J02.9 Throat dose not look inflaming , neck supple, no neck lymph node palpable, will screen strep throat . no swelling clinically of neck, she agreed. able to move right arm freely.. MANUEL has N 95 mask before such procedure. . So far the rapid strep throat is negative, she is informed. Pending the throat culture. Neck pain 93308146 M54.2 She said that her CT of neck at ER was negative, twice . she agreed the PT. , Some stiffness of neck Pain of ri ght shoulder joint 6399450536 1549672 M25.511 Will try PT. She agreed. Some stiffness of right shoulder. [id number] MD [facility] [address] [place] [phone] 0 05/08/2021 12:06:05 05/10/2021 15:00:36 Esophageal dysphagia 79428671 R13.19 Will have GI referral. Feeling of lump in throat 515911750 F45.8 Will have ENT referral. At [facility] risk of nutritional deficit 352284828 Z91.89 Will order nutritonal supplement . Acid reflux 954115427 K2 1.9 Will try medication s as ordered. [id number] Sabine Solis MD [facility] (Adult Med) [address] [place] [phone] 05/24/2021 10:19:26 05/25/2021 11:07:22 Neck swelling 355752668 R22.1 Hard to swallowing and pressure all the time , neck swelling and upper back pressure,, was told to have MRI by urgent care, PT team. Esophageal dysphagia 408 60827 R13.19 Will have GI referral. Modified barium swallowing in the near future thru the arrangemen t of her GI specialios t. Urinary tr act infectious disease 62769468 N39.0 She siad that she has UTI. On cipro , better feeling. will D/C urine culture. [id number] MD [facility] (Adult Med) [address] [place] [phone] 06/05/2021 15:21:36 06/07/2021 06:11:57 Feeling of lump in throat 512491742 F45.8 Will have ENT referral. [id number] Michael Diallo MD [facility] [address] [place] [address] 06/12/2021 11:30:58 06/12/2021 15:33:45 Laryngopharyngeal reflux 393112108 K21.9 I think most of her symptoms are related to reflux she is following with GI now Dysfunctio n of eustachian tube 80761593 H69.93 Goiter 8253630 E04.9 [id number] MD [facility] Spann (Adult Med) [address] [place] [phone] 0 06/14/2021 12:30:53 06/15/2021 08:18:23 Tension-type headache 503009317 G44.209 Ibuprofen seems bothers her stomach, will change to topical cream. Chronic sinusitis 436515 00 J32.9 Under the car eof her ENT specialist Ann Sauer . Chronic anxiety 45334814 9 F41.9 She relized this issue, not yet torefer to psychoatri st . Acid reflux 888862898 K2 1.9 Will try medication s as ordered. On famotidine and pantoprazo le, under the care of her GI specialist . Poorly fun ctioning gallbladder 447619495 K82.8 EF of gall bladder is only 23.6%, advised to discussed with her GI specialist , and avoid big meal or avoid graesy food. Morbid obesity 914412404 E66.01 Diet, exercise and lose weight, she agreed. Willing to try contrave. Will put on substitute s which are cheaper and allowed from his insurance. She is too big to fit in the ordinaty MRI, will find open MRI in the near future. [id number] MD [facility] Spann (Adult Med) [address] [place] [address] [phone] 0 06/26/2021 15:21:58 06/28/2021 11:26:39 Poorly functioning gallbladder 411865458 K82.8 EF of gall bladder is only 23.6%, advised to discussed with her GI specialist , and avoid big meal or avoid greasy food.on metoclopra mide and pantoprazo le. Acid reflux 022771906 K2 1.9 Will try medication s as ordered. On famotidine and pantoprazo le, under the care of her GI specialist . Oropharyng eal dysphagia 94555102 R13.12 Under the care of her ENT specialist . Morbid obesity 644328318 E66.01 Diet, exercise and lose weight, she agreed. Willing to try contrave. Will put on substitute s which are cheaper and allowed from his insurance. She is too big to fit in the ordinary MRI, will find open MRI in the near future. BMI is 41.6. 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 Multiple joint pain 3567 8005 M25.50 Due to lacking of lab tests , the referral was held accordingl y. will proced blood tests today, she has to make another appointmen t with rheumatolo gist, [place] of neck 184046322 R 22.1 Puffing or right neck but MRI was canceled due to claustroph obia, despite the pre-medica cydney with tranquiliz er, will do with /with out contrast under the short period of anesthesia . [id number] MD [facility] Spann (Adult Med) [address] [place] [phone] 0 09/20/2021 11:28:11 09/20/2021 20:27:21 Chronic neck pain 5825526037 107 M54.2 Will have re-schedul e MRI with anesthesio logist stand by. she said. Neck supple today, no palpable mass. Lungs clear to auscultati on. Heart regular beat, no murmur, . Abdomen soft no mass. no edema of feet. No focal neurologic deficit. oriented, ambulating . Abdominal pain 71293640 R10.9 She has been evaluated by surgeon, they had lengthy discussion , but concluded not to have surgery, will accept GI and second opinion of surgeon at [facility] in the future. Environmental allergy 42 7876000 T78.49XS She had reaction to the drink which possibly being contaminat ed by [place] , so wants refills of Epi- pen in case. [id number] Sabine Solis MD [facility] (Adult Med) [address] [place] [address] 10/09/2021 17:05:51 10/10/2021 12:47:45 MRI scan abnormal [id number] R93.89 Abnormal report for the suspicious chest findings , radiologis t suggested chest image. copies of MRI report provided to patient today 10-09-2021 . She agreed. [id number] Michael Diallo MD [facility] [address] [place] [address] 11/22/2021 09:54:54 11/27/2021 10:51:34 Dysfunction of bilateral eustachian tubes [id number] 355062 H69.93 continue antibiotic and flonase return if it doesn't improve [id number] Michael Diallo MD [facility] [address] [place] [address] 12/20/2021 13:58:43 12/21/2021 14:29:28 Dysfunction of eustachian tube 85379491 H69.93 Acute sinusitis 06264087 J01.90 [id number] [facility] [address] [place] [address] 01/04/2022 12:43:30 01/07/2022 08:34:41 Dysfunction of eustachian tube 43598613 H69.93 start over-the-c ounter antihistam ine follow-up after audiogram [id number] MD [facility] [address] [place] [address] 02/05/2022 11:27:18 02/06/2022 07:29:57 Chronic headache disorder [id number] G44.89 Visual obscuration 75024 6000 H53.8 [id number] MD Stan Nieto [facility] ts [address] [place] [address] 05/17/2022 11:49:22 05/17/2022 14:06:35 Chronic headache disorder [id number] G44.89 [id number] MD Cuca Spann (Adult Med) [address] [place] [address] 06/27/2022 15:21:35 07/02/2022 15:51:31 Morbid obesity 431190071 E66.01 Diet, exercise and lose weight, she agreed. Willing to try contrave. Will put on substitute s which are cheaper and allowed from his insurance. She is too big to fit in the ordinary MRI, will find open MRI in the near future. BMI is 41.6. BMI went up to 43.6. Ankylosing spondylitis 6205834 M45.9 Under the care of rheumatselena gaines. Screening for malignant neoplasm of cervix [id number] Z12.4 She declined today 06-27-22. [id number] Michael Diallo MD [facility] [address] [place] [address] 07/16/2022 10:02:05 07/17/2022 11:01:30 Impacted cerumen 17846011 H61.20 Dysfunctio n of eustachian tube 05300841 H69.93 start over-the-c ounter antihistam ine follow-up after audiogram start saline irrigation of her nose and she can not tolerate Flonase follow up if it deteriorat es audiograms normal [id number] MD Cuca Fink (Adult Med) [address] [place] [address] 04/29/2024 09:48:50 05/04/2024 09:28:17 Ankylosing spondylitis 6037887 M45.9 History of ankylosing spondyliti s. Will rn clinical review s notes. Will get x-ray of SI joints and lower back to see if there is evidence of ankylosing spondyliti s. Will also check HARISH and sed rate. Will then have her follow up to discuss treatment options. If needs medication would like to discuss risks and benefits in more detail. Body mass index 40+ - severely obese 661543913 Z68.41 Check TSH, Chem panel, and Hemoglobin A1C. Hyperlipid emia screening 816255107 Z13.220 Patient is fasting. Will check screening lipid profile. Rhinitis 33640798 J00 has Flonase at home. Will use that one puff each nostril bid. [id number] Olga Maurer MD [facility] (Adult Med) [address] [place] [address] 06/01/2024 16:37:45 06/07/2024 14:58:01 Coating of mucous membrane of tongue 176914135 K14.3 Coating on tongue mild. Will have her avoid Nystatin at this time and we will wait for fungal culture to come back to try to confirm if this is a fungal issue. Will have her use Listerine once or twice a day until then. Oral mucosa is dry so I encouraged her to make sure to drink six to eight glasses of water a day. Vaginitis 32605185 N76.0 Will check vaginal swab for yeast infection. Asked her to avoid probiotic. [id number] Michael Diallo MD [facility] [address] [place] [address] 07/13/2024 14:48:31 07/13/2024 15:18:50 Candidiasis of mouth 37692645 B37.0 infection resolving Chronic rhinitis 7202388 6 J31.0 add over-the-c ounter antihistam mamadou follow back as needed [id number] Marquis Evans [facility] [address] [place] [address] 07/20/2024 10:46:50 07/20/2024 14:39:07 Reducible umbilical hernia [id number] K42.9 patient with symptomati c umbilical hernia, [...] by Organization Details LastModified Time None Recorded Advance Directives Directive N: Payers Encounter Date Sequence Insurance Name Policy Number Policy Dent Covered Member ID Dent Member ID Guarantor Name 07/16/2022 1 [facility] (MEDICAID HMO) [id number] Regina Feliz [id number] Regina Feliz 04/29/2024 1 *SELF PAY* Jose Ramon Feliz 06/01/2024 1 *SELF PAY* Jose Ramon Feliz 07/13/2024 1 *SELF PAY* Jose Ramon Feliz 07/20/2024 1 *SELF PAY* Jose Ramon Feliz Notes Date Note Type Note Provider Name and Address Organization Details Recorded Time 07/16/2022 text/html Patient complain ing of intermittent block sensation of her ears. She has been on Flonase in the past but began having nose bleeds. She recently had audiogram which was essentially normal. She is doing fairly well today. Michael Diallo MD [address] [facility], [place], [address], [facility] 07/16/2022 10:08:40 04/29/2024 text/html here to radha triana, was seeing faculty instructor for ankylosing spondylitis, has not been on medication for a year because had some concerns about medications she was prescribed and also ran out of insurance, was prescribed Humira which said risk of TB and cancer, was put on Humira, was very sick for a year and a half, had GI work up, had reflux, took PPI and Famotidine, saw chief dog license inspector at [place], eventually had gallbladder out, has anxiety about medical care, has been extremely tired, parents have been at house last six months, not eating well, drinking soda daily, a couple weeks before [place] started with sinus symptoms for three weeks, started feeling better around Apr 18, Mk Ami hot and head hurting, sick to stomach, bad sleeping, past three night trying to lay down between nine and ten but hard to fall asleep, last night laid down at nine and fell asleep round eleven and up at five, sore throat, mucous, tonsilliths, believes has a hernia, ball in belly button, has noticed that a few months, no pain, had tooth crack before [place] on the , was put on Amoxicillin by dentist and is still taking, last couple days felt better, arms feel tired, all joints get painful, shoulders and fingers and wrists and ankles and feet and knees and hips and back and neck, has had normal thyroid ultrasound, aunt has Hashimotos, nonsmoker Olga Maurer MD Attn: Accounting,[address] [facility], [place], [address], [facility] 04/29/2024 11:17:18 06/01/2024 text/html end of Dec put o n Amoxicillin for ten days for cracked tooth, right after that around the sixth started getting vaginal yeast infection, came in and did urine test, ended up going to Urgent Care and was started on Bactrim for UTI but we switched to Cipro for eight days after we got the culture back, toward end of Cipro when woke up tongue was white and throat was swollen and white, burn feeling, called in Nystatin, toward the end of the Cipro had vaginal yeast symptoms again, took second Diflucan, took Nystatin, at end of period had vaginal yeast symptoms again, slight vaginal burning, still has stuff on tongue, finished Cipro at least a week ago, tongue still doesn't feel right, burning and bumps, vaginal area has a little discomfort, has been working on lifestyle since was told sugar was elevated, cutting out sugar, has dropped weight, Olga Maurer MD Attn: Accounting[address] [facility], [place], [address], [facility] 06/01/2024 18:04:28 07/13/2024 text/html patient had a to oth infection was treated with antibiotics. Or primary care felt she developed thrush and was treated with nystatin. She is doing better at this time though still has some whitish changes in her mouth. She also complains of nasal congestion and drainage. She is on antihistamines. Michael iDallo MD [address], [place], [address], [facility] 07/13/2024 15:17:25 07/20/2024 text/html HerniaReported bypatient.Location:u mbilical port site Quality:tender;bulgi ng Severity:mild; worse during the day; pressure Duration:4 months Onset/Timing:intermi ttent Context:no history of chronic liver disease; no family history of substance abuse Alleviating factors:rest Aggravating factors:bending over Associated Symptoms:no nausea; no vomiting Marquis Evans MD [address], [place], [address], [place] [facility] 07/20/2024 11:17:15 OBGyn Episode No OBEpisode recorded.
--- OUTSIDE RECORDS SUMMARY | 2024-07-20 16:53 | XMS_ITS | Patient Health Record ---
Author Organization Formerly [facility] Address [address] [place] [address] Care Team Providers Care Drafter Seismograph Name Role Phone Shannan Gray Primary Care Provider [phone] Allergies Allergen (clinical drug ingredient) Drug/Non Drug Allergy documented on EMR Reaction Allergy Type Onset Date Status nitrofurantoin, macrocrystals / nitrofurantoin, monohydrate Macrobid Unknown Drug Allergy Active Reason For Referral No Information Medications Medication SIG (Take, Route, Frequency, Duration) Notes Start Date End Date Status Diclofenac Potassium 75 mg BID Active Zoloft 50 MG 1 tablet Orally Once a day for 30 day(s) Active Pantoprazole Sodium 40 MG 1 tablet Orally Twice a day Active Montelukast Sodium 10 MG 1 tablet Orally Once a day for 30 day(s) Active Famotidine 40 MG 1 tablet Orally Twic e a day Active EpiPen Active traMADol HCl 50 MG 1-2 tablet as needed Orally three times daily Active ZyrTEC Allergy 10 MG 1 tablet Orally Onc e a day for 30 day(s) Active Albuterol Sulfate 108 (90 Base) MCG/ACT 1 puff as needed Inhalation every 4 hrs Active Humira Pen 40 MG/0.4ML as directed Subcu taneous twice per week Active Social History Sex Assigned At : Social History Observation Description Sex Assigned At Female Problems Problem Type SNOMED Code ICD Code Onset Dates Problem Status W/U Status Risk Notes Problem Generalized anxiety disorder (74684545) Generalized anxiety disorder (F41.1) Active confirmed Problem Major depression (599512240) Major depression (F32.9) Active confirmed Plan Of Treatment No Information Insurance Providers Payer Name Payer Address Payer Phone Subscriber Number Group Number Insured Name Patient Relationship to Insured Coverage Start Date Coverage End Date [address] [phone] [id number] Regina Feliz Self - patient is the insured [address] [facility] [address] [place] [address] [id number] Regina Feliz Self - patient is the insured 0 Medical (General) History Medical History History ICD Code Auto immune disorder Surgical History Surgery Date(Month/Year) upper GI rebuild 1983
== END 2024-07-20 14:20 | disposition home or self-care (01) ==
PROVIDERS: Visit Provider Obstetrics & Gynecology
DX: N63.21 Unspecified lump in the left breast, upper outer quadrant (principal)
CPT/HCPCS: 76642; 77062; 77066; G0279